=== PATIENT | male | born 1965 | race Two or more races ===

== ENCOUNTER 2021-03-24 04:59 | Emergency (ER) | payer OTHER ==
[~2021-03-24] VITALS: Ht 160 cm; Wt 65.8 kg
[2021-03-24] MEDS ORDERED: ONDANSETRON ODT 4 MG TAB PO ONE (05:15)
[2021-03-24 06:23] LABS: Basophils # (auto) 0 10 ^3/uL (0-0.2); Basophils % (auto) 0.4 % (0.0-2.0); Eosinophils # (auto) 0 10 ^3/uL (0-0.8); Eosinophils % (auto) 0.1 % (0.0-7.0); Hematocrit 47.7 % (41.0-53.0); Hemoglobin 16.6 g/dL (13.5-17.5); Lymphocytes # (auto) 1.2 10 ^3/uL (0.4-5.4); Lymphocytes % (auto) 10.4 % (10.0-50.0); Mean Corpuscular Hemoglobin 31.3 pg (28.0-32.0); Mean Corpuscular Hgb Conc. 34.8 g/dL (32.0-36.0); Mean Corpuscular Volume 90.1 fL (80.0-100.0); Monocytes # (auto) 0.5 10 ^3/uL (0-1.3); Monocytes % (auto) 4.5 % (0.0-12.0); Neutrophils # (auto) 9.9 10 ^3/uL (1.6-8.6); Neutrophils % (auto) 84.6 % (37.0-80.0); Red Cell Distribution Width 13.4 % (11.8-14.3); White Blood Cell 11.6 10^3/uL (4.4-10.8)
[2021-03-24 06:44] LABS: Albumin 3.7 g/dL (3.4-5.0); Calcium 8.9 mg/dL (8.5-10.1); Potassium 4.7 mmol/L (3.5-5.1)
[2021-03-24 06:47] LABS: BUN/Creatinine Ratio 12.5; Bilirubin, Total 0.5 mg/dL (0.2-1.0); Total Protein 8.3 g/dL (6.4-8.2)
[2021-03-24] MEDS ORDERED: SODIUM CHLORIDE 0.9% 1,000 ML IV ONE ×2 (13:00)
[2021-03-24 15:16] VITALS: BP 133/75
== END 2021-03-24 15:18 | disposition home or self-care (01) ==
LOC: ER 04:59
DX: K52.9 Noninfective gastroenteritis and colitis, unspecified (principal)
CPT/HCPCS: 36415; 80053; 85025; 96360; 99283; J7030; Q0162